=== PATIENT | male | born 1975 | race Caucasian/White ===

== ENCOUNTER 2022-04-15 04:02 | Day surgery (SDC) | payer OTHER ==
[2022-04-15] VITALS (210 sets, daily range): BP systolic 78–149; BP diastolic 41–91
[~2022-04-15] VITALS: Ht 182.9 cm; Wt 108.0 kg
--- NOTE | 2022-04-15 07:30 | NUR ---
PT ARRIVED TO [facility] SUITES WITH SPOUSE. BOTH HAVE BEEN ESCORTED TO ROOM AND POC EXPLAINED. PT HAS BEEN ORIENTED TO ROOM, CALL LIGHT AND OF FALL RISK PRECAUTIONS. PT HAS BELONGINGS AT BEDSIDE. PT VS ASSESSED. WILL CONTINUE TO MONITOR.
[2022-04-15 08:14] LABS: BASO% 0.2 % (0-3); EOS% 2.4 % (0-8); HEMATOCRIT 41.9 % (39.0-50.0); HEMOGLOBIN 13.7 g/dl (14.0-18.0); IMMATURE GRANULOCYTES 0.2 % (0.0-5.0); LYMPH% 33.1 % (15-41); MEAN CORPUSCULAR HGB 28.1 pG CALC (26.0-32.0); MEAN CORPUSCULAR HGB CONC 32.7 g/dL CAL (32.0-36.0); MONO% 10.4 % (2-13); NEUT# 2.94 thou/uL (1.82-7.42); NEUT% 53.7 % (42-76); RED BLOOD COUNT 4.87 mill/uL (4.70-6.10); RED CELL DISTRI WIDTH 12.6 % (11.5-15.5)
[2022-04-15 08:20] LABS: ALBUMIN 4.9 g/dL (3.2-5.0); ALKALINE PHOSPHATASE 54 u/l (38-126); ANION GAP 14 (6-22 (CALC)); BILIRUBIN, TOTAL 0.5 mg/dL (0.2-1.3); BUN 14 mg/dL (9-20); BUN/CREATININE RATIO 16 (12-20 (CALC)); CARBON DIOXIDE 27 mmol/l (22-30); CHLORIDE 102 mmol/l (95-108); CREATININE 0.9 mg/dL (0.7-1.3); GFR FOR AFR.AMER. > 60 ML/MIN (>=60 (CALC)); GFR OTHER RACES > 60 ML/MIN (>=60 (CALC)); SGOT/AST 26 u/l (17-59); SODIUM 139 mmol/l (137-146); TOTAL PROTEIN 7.5 g/dL (6.3-8.2)
[2022-04-15] MEDS ORDERED: LISINOPRIL10 MG PO (09:03)
[2022-04-15] MEDS ORDERED: ROSUVASTATIN CA10 MG PO (09:04)
--- NOTE | 2022-04-15 09:30 | NUR ---
PT HAS BEEN SLEEPIN COMFORTABLY, PT VSS. WILL CONTIUNUE TO MONITOR.
--- NOTE | 2022-04-15 11:30 | NUR ---
Induction Note Patient to [facility] procedure room. Time out performed at 1130. Patient placed on monitors, Simón hugger, bilateral wrist restraints applied for ET tube protection. Versed 5mg given IV push at 1131 Tourniquet applied to RIGHT arm Lidocaine 100mg given at 1132 IV push followed by Rocoronium 10mg at 1133 IV push and held for 90 seconds. Propofol bolus of 200mg given at 1136 IV push. Succinylcholine 100mg given IV push at 1136. Smooth intubation with 7.5 ETT. Positive CO2. Positive Auscultation for air exchange. Patient placed on ventilator for spontaneous ventilation. Placed on Propofol IV drip at 1137. OG inserted. Positive air on auscultation. Positive gastric content. Stomach washed at this time.
--- NOTE | 2022-04-15 11:45 | NUR ---
OG close note Stomach washed at this time. Naltrexone 50 mg with Clonidine 0.2 mg via OG tube. OG will be clamped for 45 minutes.
--- NOTE | 2022-04-15 12:30 | NUR ---
OG open note OG open at this time. Gastric content draining into drainage bag. OG to drain for 45 minutes. Propofol will be titrated down based on patient.
--- NOTE | 2022-04-15 13:30 | NUR ---
OG close note Stomach washed at this time. Naltrexone 50 mg with Clonidine 0.1 mg via OG tube. OG will be clamped for 45 minutes.
--- NOTE | 2022-04-15 15:15 | NUR ---
OG close note Stomach washed at this time. Naltrexone 50 mg via OG tube. OG will be clamped for 45 minutes.
[2022-04-15] MEDS ORDERED: NALTREXONE50 MG PO (16:08)
[2022-04-15] MEDS ORDERED: CLONIDINE0.1 MG PO (16:08)
[2022-04-15] MEDS ORDERED: KLONOPIN2 MG PO (16:09)
--- NOTE | 2022-04-15 17:00 | NUR ---
OG close note Stomach washed at this time. Naltrexone 12.5 mg via OG tube. OG will be clamped for 30 minutes.
--- NOTE | 2022-04-15 18:30 | NUR ---
Extubation note Closing medications given Benadryl 50mg IV push, Decadron 10mg IV push,Magnesium 4 grams IV, Zofran 8mg IV push, Octreotide 100mcg SC. Stomach washed out prior to extubation. Suctioned gastric content. OG removed. Patient extubated. Propofol Discontinued. Wrist restraints removed. Simón hugger Removed. See [facility] Moderate sedate recovery record for further notes and assessment.
--- NOTE | 2022-04-15 19:00 | NUR ---
REPORT GIVEN TO ALESSANDRA ORTIZ. PT IS AROUSABLE TO TACTILE STIMULI. PT HAS IVF INFUSING @ 100ML/HR. 2LNC, VS ASSESSED, BED ALARM IS ACTIVE.
--- NOTE | 2022-04-15 19:05 | NUR ---
RECEIVED PATIENT IN ROOM 287. BEDSIDE REPORT RECEIVED FROM ALESSANDRA VILLEGAS. PATIENT RESTLESS, CONTINUOUSLY REPOSITIONING SELF. VSS WITH THE EXCEPTION OF BP; UNABLE TO OBTAIN DUE TO EXCESSIVE MOVEMENT INCLUDING MANUAL READING. O2 @ 2L/NC. NO DISTRESS NOTED. BED ALARM ACTIVATED.
--- NOTE | 2022-04-16 00:34 | NUR ---
PATIENT REMAINS RESTLESS. DOES NOT FOLLOW COMMANDS. ATTEMPTS TO GET UP FROM BED STATING "POTTY". PATIENT DROWSY, WILL NOT KEEP EYES OPEN AND AGAIN DOES NOT FOLLOW COMMANDS. OFFERED URINAL, PATIENT PUSHED IT AWAY.
--- NOTE | 2022-04-16 00:45 | NUR ---
PATIENT HAS NOT VOIDED SINCE ARRIVAL TO UNIT. EXPLAINED NEED TO BLADDER SCAN, PATIENT DID NOT RESPOND TO EDUCATION/REQUEST. ONLY ONE ATTEMPT TO BLADDER SCAN COMPLETE BEFORE PATIENT BECAME AGGRESSIVE. 467ML NOTED PER SCANNER; NO FURTHER ATTEMPTS MADE.
--- NOTE | 2022-04-16 02:05 | NUR ---
2 PERSON ASSIST TO RESTROOM, TOLERATED FAIRLY. PATIENT VOIDED UNABLE TO DETERMINE AMOUNT, URINAL WAS NOT USED. SMALL BM NOTED. ASSISTED BACK TO BED; ALARM ACTIVATED.
--- NOTE | 2022-04-16 03:45 | NUR ---
BED ALARMED. PATIENT OOB TO RESTROOM, MINIMAL ASSISTANCE. DARK ROSALIO URINE NOTED.
[2022-04-16 04:04] VITALS: BP 128/66
--- NOTE | 2022-04-16 04:07 | NUR ---
PATIENT UNCOOPERATIVE, DIFFICULT TIME OBTAINING VITALS SIGNS. PATIENT THEN REFUSED SCHEDULED MEDS. OFFERED WATER PRIOR TO OFFERING MEDS, PATIENT PUSHED HAND AND CUP AWAY SEVERAL TIMES. ASKED PATIENT TO TAKE MEDS, HE COVERED HIS HEAD WITH BLANKETS. AT THIS POINT PATIENT LEFT ALONE, MEDS WERE NOT GIVEN.
--- NOTE | 2022-04-16 04:56 | NUR ---
OFFERED MEDS ONCE MORE ASKING "AMY WOULD YOU LIKE YOUR MEDICINE?" HIS REPLY, "NO." PATIENT PROCEEDED TO TURN THE OPPOSITE DIRECTION AND COVER HIS HEAD WITH A BLANKET.
[2022-04-16 07:14] VITALS: BP 124/48
[2022-04-16 07:54] VITALS: BP 124/48
--- NOTE | 2022-04-16 08:34 | NUR ---
PT IN BED MOVING, RESTLESS. A&OX3. IV SITE TO RAC, INTACT AND CLEAN. NALTREXONE GIVEN WITH MORNING MEDS. PT HAS URINAL AT BEDSIDE BUT PREFERS TO GET OUT OF BED TO USE THE BATHROOM. PT INSTRUCTED TO USE CALL LIGHT FOR ASSISTANCE PRIOR TO GETTING UP, VERBALIZED UNDERSTANDING. CALL LIGHT WITHIN REACH, BED ALARM ON. WILL CONTINUE TO MONITOR PT.
[2022-04-16 09:14] LABS: BASO% 0.1 % (0-3); HEMATOCRIT 39.2 % (39.0-50.0); HEMOGLOBIN 13.1 g/dl (14.0-18.0); IMMATURE GRANULOCYTES 0.1 % (0.0-5.0); LYMPH% 7.2 % (15-41); MEAN CELL VOLUME 83.1 fL CALC (80.0-100.0); MEAN CORPUSCULAR HGB 27.8 pG CALC (26.0-32.0); MEAN CORPUSCULAR HGB CONC 33.4 g/dL CAL (32.0-36.0); MONO% 6.9 % (2-13); NEUT# 11.71 thou/uL (1.82-7.42); NEUT% 85.7 % (42-76); RED BLOOD COUNT 4.72 mill/uL (4.70-6.10); RED CELL DISTRI WIDTH 12.5 % (11.5-15.5)
[2022-04-16 09:50] LABS: ALBUMIN 4.4 g/dL (3.2-5.0); ALKALINE PHOSPHATASE 61 u/l (38-126); BILIRUBIN, TOTAL 0.6 mg/dL (0.2-1.3); BUN 19 mg/dL (9-20); BUN/CREATININE RATIO 19 (12-20 (CALC)); CHLORIDE 112 mmol/l (95-108); GFR FOR AFR.AMER. > 60 ML/MIN (>=60 (CALC)); GFR OTHER RACES > 60 ML/MIN (>=60 (CALC)); POTASSIUM 3.6 mmol/l (3.5-5.1); SGOT/AST 33 u/l (17-59); SODIUM 141 mmol/l (137-146)
[2022-04-16 09:54] LABS: ANION GAP 12 (6-22 (CALC)); CARBON DIOXIDE 21 mmol/l (22-30)
--- NOTE | 2022-04-16 12:00 | NUR ---
PT IB BED RESTING COMFORTABLY, AWAKENED TO VOICE. IV SITE TO RAC INTACT AND CLEAN. CALL LIGHT WITHIN REACH AND SAFETY MEASURES IN PLACE.
--- NOTE | 2022-04-16 16:56 | NUR ---
Discharge instructions given. Patient verbalizes understanding of same. Discharged in stable condition via Wheelchair to Home with staff. All belongings sent with pt.
== END 2022-04-16 16:50 | disposition home or self-care (01) | DRG 897 ==
LOC: MS2 04:02 → ANR 04:02
PROVIDERS: ATTEND Anesthesiology Critical Care Medicine
DX: F11.20 Opioid dependence, uncomplicated (principal)
CPT/HCPCS: J0131; J2060; J2354; J3475